=== PATIENT | female | born 1995 | race Caucasian/White ===

== ENCOUNTER → 2019-02-18 | Outpatient (CLI) | payer BC ==
--- NOTE | 2019-02-18 15:27 | REP ---
REASON: Cough and dyspnea. PRIORS: None. There is a patchy opacity in the left upper lobe. Lung marie are otherwise clear, and the pleural angles are sharp. The heart is not enlarged. The osseous structures are normal. IMPRESSION: There is a patchy opacity in the left upper lobe. The findings suggest pneumonia. Correlate clinically. Electronically Signed by Jose Guadalupe Garcia DO 02/19/2019 03:20 P
== END ==
LOC: M LRY 14:47
PROVIDERS: ATTEND Nurse Practitioner Family
DX: R91.8 Other nonspecific abnormal finding of lung field (principal)